=== PATIENT | male | born 1990 | race Hispanic/Latino ===

== ENCOUNTER 2023-05-08 21:02 | Emergency (ER) | payer OTHER ==
[~2023-05-08] VITALS: Ht 170.2 cm; Wt 83.9 kg
[2023-05-08] MEDS ORDERED: IBUPROFEN 600 MG TABLET PO ONE (22:00)
[2023-05-08] MEDS ORDERED: HYDROCODONE/ACETAMINOPHEN 5/325 MG TAB PO ONE (22:00)
[2023-05-08] MEDS ORDERED: TETANUS/DIPHTHERIA TOXOID [ADULT] 0.5 ML VIAL IM ONE (22:00)
[2023-05-08] MEDS ORDERED: CEPHALEXIN 500 MG CAPSULE PO ONE (22:00)
[2023-05-08 22:12] VITALS: BP 149/86
[2023-05-08] MEDS ORDERED: LIDOCAINE HCL 1% 20 ML VIAL ONE (22:48)
[2023-05-08] MEDS ORDERED: CEPH500B PO (23:33)
== END 2023-05-08 23:41 | disposition home or self-care (01) ==
LOC: EDBD 21:02 → EDH 21:02
DX: S61.411A Laceration without foreign body of right hand, initial encounter (principal); Z98.890 Other specified postprocedural states; X58.XXXA Exposure to other specified factors, initial encounter; Y93.89 Activity, other specified; Y92.89 Other specified places as the place of occurrence of the external cause; Y99.8 Other external cause status
CPT/HCPCS: 12001; 73130; 90471; 90714